=== PATIENT | female | born 1955 | race Caucasian/White ===

== ENCOUNTER 2020-10-04 15:36 | Emergency (ER) | payer MEDICARE, OTHER ==
[~2020-10-04] VITALS: Ht 167.6 cm; Wt 65.3 kg
--- NOTE | 2020-10-04 15:55 | NUR ---
AMBULATED TO ER BED 7 WITHOUT DIFFICULTY/DIZZINESS, MONITORED,EKG ORDERED, DR QUARLES INFORMED
--- NOTE | 2020-10-04 16:05 | NUR ---
SEEN BY DR QUARLES,ORDERS GIVEN AND CARRIED OUT
[2020-10-04 16:13] LABS: BASOPHILS % (AUTO) 0.3 % (0.0-2.0); EOSINOPHILS % (AUTO) 1.8 % (0.0-6.0); HEMATOCRIT 41 % (33-45); HEMOGLOBIN 13.7 g/dL (11.5-14.8); LYMPHOCYTES # (AUTO) 1.8 K/uL (0.8-4.8); LYMPHOCYTES % (AUTO) 24.2 % (20.0-44.0); MEAN CORPUSCULAR HGB CONC 33 g/dl (31.0-36.0); MEAN CORPUSCULAR VOLUME 93 fL (82-100); MONOCYTES # (AUTO) 0.3 K/uL (0.1-1.30); MONOCYTES % (AUTO) 4.4 % (2.0-12.0); NEUTROPHILS # (AUTO) 5.3 K/uL (1.8-8.9); NEUTROPHILS % (AUTO) 69.3 % (43.0-81.0); PLATELET COUNT (AUTO) 299 K/uL (150-450); RED BLOOD CELL COUNT(AUTO) 4.42 MIL/uL (4.0-5.2); WHITE BLOOD COUNT (AUTO) 7.6 K/uL (4.3-11.0)
[2020-10-04] MEDS ORDERED: IOHEXOL-350 100 ML VIAL IV ONE (16:27)
[2020-10-04] MEDS ORDERED: CT SWABBABLE VALVE TRANS SET 1 EA INFUS.SET MC ONE (16:27)
[2020-10-04] MEDS ORDERED: IV NS 0.9% 250 ML IV ONE (16:27)
[2020-10-04 16:28] LABS: CALCIUM, SERUM 9.2 mg/dL (8.5-10.1); CARBON DIOXIDE 24 mmol/L (21-32); CHLORIDE 105 mmol/L (98-107); CREATININE 0.6 mg/dL (0.6-1.3); GLUCOSE 109 mg/dL (74-106); POTASSIUM 3.5 mmol/L (3.5-5.1); SODIUM SERUM 142 mmol/L (136-145); UREA NITROGEN, BLOOD 13 mg/dL (7-18)
--- NOTE | 2020-10-04 16:29 | NUR ---
Updated with plan of care. Pt reclining in bed NO obvious distress
[2020-10-04 16:51] LABS: CHOLESTEROL 187 mg/dL (<200); HDL CHOLESTEROL 58 mg/dL (40-60); LDL 98 mg/dL (0-99); TRIGLYCERIDES 173 mg/dL (30-150)
[2020-10-04 18:20] VITALS: BP 137/70
--- NOTE | 2020-10-04 18:20 | NUR ---
Patient discharged to home in stable condition. Written and verbal after care instructions given. Patient verbalizes understanding of instruction.
== END 2020-10-04 18:20 | disposition home or self-care (01) ==
LOC: ER 15:36
DX: R20.2 Paresthesia of skin (principal); G43.909 Migraine, unspecified, not intractable, without status migrainosus; Z86.73 Personal history of transient ischemic attack (TIA), and cerebral infarction without residual deficits; Z98.890 Other specified postprocedural states; Z88.5 Allergy status to narcotic agent; Z91.018 Allergy to other foods; Z91.048 Other nonmedicinal substance allergy status; Z60.2 Problems related to living alone
CPT/HCPCS: 36415; 70496; 71045; 80048; 80061; 82962; 84484; 85025; 85730; 93005 ×2; 99285; J7050; Q9967

== ENCOUNTER 2022-01-01 13:44 | Emergency (ER) | payer MEDICARE, OTHER ==
[~2022-01-01] VITALS: Ht 162.6 cm; Wt 54.4 kg
[2022-01-01] MEDS ORDERED: HYDROCODONE/APAP 5/325MG TABLET PO ONE (15:30)
[2022-01-01] MEDS ORDERED: HYDROCODONE/APAP 5/325MG TABLET ONE (15:30)
[2022-01-01] MEDS ORDERED: HYDR-4303 PO (15:46)
[2022-01-01 15:53] VITALS: BP 124/71
--- NOTE | 2022-01-01 15:53 | NUR ---
Patient discharged to home in stable condition. Written and verbal after care instructions given. Patient verbalizes understanding of instruction.
== END 2022-01-01 15:53 | disposition home or self-care (01) ==
LOC: ER 13:56
DX: S20.212A Contusion of left front wall of thorax, initial encounter (principal); G43.909 Migraine, unspecified, not intractable, without status migrainosus; Z90.710 Acquired absence of both cervix and uterus; Z88.8 Allergy status to other drugs, medicaments and biological substances; Z60.2 Problems related to living alone; W01.198A Fall on same level from slipping, tripping and stumbling with subsequent striking against other object, initial encounter; Y93.89 Activity, other specified; Y92.89 Other specified places as the place of occurrence of the external cause; Y99.8 Other external cause status
CPT/HCPCS: 71100-TC

== ENCOUNTER 2023-12-09 18:13 | Inpatient (IN) | payer MEDICARE, OTHER ==
[~2023-12-09] VITALS: Ht 162.6 cm; Wt 57.2 kg
[~2023-12-09 18:13] MED LIST: HYDR-4303 PO
[2023-12-09] MEDS ORDERED: EYEL1KIT EACHEYE (19:20)
[2023-12-09] MEDS ORDERED: ASPI-1169 PO (19:20)
[2023-12-09] MEDS ORDERED: VITS42.53 TP (19:20)
[2023-12-09] MEDS ORDERED: ERGO500093 PO (19:20)
[2023-12-09] MEDS ORDERED: AMIN30LI66 PO (19:20)
[2023-12-09] MEDS ORDERED: ZOLP5TAB8 PO (19:20)
[2023-12-09] MEDS ORDERED: CARB15DR EACHEYE (19:20)
[2023-12-09] MEDS ORDERED: CYCL30DR EACHEYE (19:20)
[2023-12-09] MEDS ORDERED: DIVA125T2 PO (19:20)
[2023-12-09] MEDS ORDERED: MEGE400O5 PO (19:20)
[2023-12-09] MEDS ORDERED: LEVO75TA99 PO (19:20)
[2023-12-09] MEDS ORDERED: ZINC220C6 PO (19:20)
[2023-12-09] MEDS ORDERED: ASCO-352 PO (19:20)
[2023-12-09] MEDS ORDERED: ACET325T53 PO (19:20)
[2023-12-09] MEDS ORDERED: MULT-213 PO (19:20)
[2023-12-09] MEDS ORDERED: PANT40TA49 PO (19:20)
[2023-12-09] MEDS ORDERED: ZINC57OI4 TP (19:20)
[2023-12-09] MEDS ORDERED: HONE44PA TP (19:20)
[2023-12-09] MEDS ORDERED: POTA20TA83 PO (19:20)
[2023-12-09] MEDS ORDERED: ATOR40TA PO (19:20)
[2023-12-09] MEDS ORDERED: POVI1MED TP (19:20)
[2023-12-09] MEDS ORDERED: POLY17PO4 PO (19:20)
[2023-12-09] MEDS ORDERED: DULO30CA52 PO (19:20)
[2023-12-09] MEDS ORDERED: ACET-73 PO (19:20)
[2023-12-09] MEDS: IV NS 0.9% 1,000 ML BAG IV ONE (19:29)
[2023-12-09] MEDS: ACETAMINOPHEN 325 MG TABLET PO ONE (19:30)
[2023-12-09] MEDS ORDERED: ACETAMINOPHEN 650 MG/SUPP.RECT RC ONE (19:55)
[2023-12-09] MEDS ORDERED: VANCOMYCIN 1 GM /D5W 250 ML PB IV ONE (20:03)
[2023-12-09] MEDS ORDERED: CEFEPIME 1 GM VIAL ONE (20:03)
[2023-12-09 20:13] LABS: BASOPHILS % (AUTO) 0.1 % (0.0-2.0); HEMATOCRIT 37 % (33-45); HEMOGLOBIN 11.8 g/dL (11.5-14.8); LYMPHOCYTES # (AUTO) 0.4 K/uL (0.8-4.8); LYMPHOCYTES % (AUTO) 2.2 % (20.0-44.0); MEAN CORPUSCULAR HEMOGLOBIN 29 PG (26.0-33.0); MEAN CORPUSCULAR HGB CONC 32 g/dl (31.0-36.0); MEAN CORPUSCULAR VOLUME 91 fL (82-100); MONOCYTES # (AUTO) 2.2 K/uL (0.1-1.30); MONOCYTES % (AUTO) 11.7 % (2.0-12.0); NEUTROPHILS # (AUTO) 15.8 K/uL (1.8-8.9); PLATELET COUNT (AUTO) 195 K/uL (150-450); RED BLOOD CELL COUNT(AUTO) 4.01 MIL/uL (4.0-5.2); RED CELL DISTRIBUTION WIDTH 14.4 % (11.5-15.0); WHITE BLOOD COUNT (AUTO) 18.4 K/uL (4.3-11.0)
[2023-12-09 20:28] LABS: INR 1.13 (0.91-1.10); PARTIAL THROMBOPLASTIN TIME 22.5 SEC (24.3-34.3); PROTHROMBIN TIME 11.9 SECS (9.2-11.1)
[2023-12-09 20:37] LABS: CALCIUM, SERUM 7.5 mg/dL (8.5-10.1); CARBON DIOXIDE 20 mmol/L (21-32); CHLORIDE 101 mmol/L (98-107); CREATININE 0.4 mg/dL (0.6-1.3); GLUCOSE 146 mg/dL (74-106); POTASSIUM 5.7 mmol/L (3.5-5.1); SODIUM SERUM 129 mmol/L (136-145); UREA NITROGEN, BLOOD 48 mg/dL (7-18)
[2023-12-09 20:41] LABS: APPEARANCE,URINE Turbid (CLEAR); BILIRUBIN,URINE MODERATE (NEGATIVE); BLOOD, URINE Negative Ery/uL (NEGATIVE); COLOR,URINE DARK YELLOW (YELLOW); KETONES,URINE Trace mg/dL (NEGATIVE); LEUKOCYTE ESTERASE ,URINE Small (NEGATIVE); NITRITE, URINE Negative (NEGATIVE); PROTEIN,URINE Trace mg/dl (NEGATIVE); UGLUCOSE Negative (NEGATIVE)
[2023-12-09] MEDS: CEFEPIME 2 GM in IV D5W 50 ML IV ONE (20:43)
[2023-12-09 20:46] LABS: LACTIC ACID 2.2 mmol/L (0.4-2.0)
[2023-12-09 20:50] LABS: ALANINE AMINOTRANSFERASE 16 U/L (12-78); ALBUMIN 1.6 g/dL (3.4-5.0); ALKALINE PHOSPHATASE 75 U/L (46-116); ASPARTATE AMINOTRANSFERASE 14 U/L (15-37); BILIRUBIN,DIRECT 0.2 mg/dL (0.0-0.2); BILIRUBIN,TOTAL 0.5 mg/dL (0.2-1.0); NT-PRO BNP 295 pg/mL (0-125)
[2023-12-09 20:54] LABS: ADD URINE CULTURE YES; BACTERIA,URINE 1+ /HPF (None Seen); SQUAMOUS EPITHELIAL CELL,UR 0-2 /HPF (None Seen); URINE AMORPHOUS URATE Moderate /HPF (None Seen)
[2023-12-09] MEDS: ACETAMINOPHEN 650 MG/SUPP.RECT RC ONE (21:00)
[2023-12-09] MEDS: VANCOMYCIN 1 GM in IV D5W 250 ML IV ONE (21:22)
[2023-12-09] MEDS: ENOXAPARIN SODIUM 30 MG/0.3 ML DISP.SYRIN SQ SCH (22:00)
[2023-12-09] MEDS ORDERED: ALBUTEROL FS 2.5 MG/3 ML VIAL.NEB NEB PRN (22:00)
[2023-12-09] MEDS ORDERED: ONDANSETRON HCL/PF 4 MG/2 ML VIAL IVP PRN (22:00)
[2023-12-10] VITALS (9 sets, daily range): BP systolic 115–142; BP diastolic 62–84; TEMP 97.3–98.7; O2SAT 90–98
[2023-12-10] MEDS ORDERED: Calcium Gluconate 0.465 MEQ/ML VIAL IV ONE ×2 (00:30→02:05)
[2023-12-10] MEDS ORDERED: DEXTROSE 50%-WATER 50 ML DISP.SYRIN ONE (02:30)
[2023-12-10] MEDS: Calcium Gluconate 1GM/10ML 4.65 MEQ in IV NS 0.9% 100 ML IV ONE (02:38)
[2023-12-10] MEDS: INSULIN REGULAR, HUMAN 100 UNIT/ML 10 ML VIAL IV ONE (03:02)
[2023-12-10] MEDS: DEXTROSE 50%-WATER 50 ML DISP.SYRIN IVP ONE (03:36)
[2023-12-10] MEDS: ACETAMINOPHEN 650 MG/SUPP.RECT RC PRN (04:55)
[2023-12-10] MEDS: IV NS 0.9% 1,000 ML IV PRN (05:49)
[2023-12-10 06:53] LABS: BASOPHILS % (AUTO) 0.1 % (0.0-2.0); HEMATOCRIT 37 % (33-45); HEMOGLOBIN 12.2 g/dL (11.5-14.8); LYMPHOCYTES # (AUTO) 0.3 K/uL (0.8-4.8); LYMPHOCYTES % (AUTO) 2.1 % (20.0-44.0); MEAN CORPUSCULAR HEMOGLOBIN 29 PG (26.0-33.0); MEAN CORPUSCULAR HGB CONC 33 g/dl (31.0-36.0); MEAN CORPUSCULAR VOLUME 90 fL (82-100); MONOCYTES # (AUTO) 1.2 K/uL (0.1-1.30); MONOCYTES % (AUTO) 8.2 % (2.0-12.0); NEUTROPHILS # (AUTO) 13.1 K/uL (1.8-8.9); NEUTROPHILS % (AUTO) 89.6 % (43.0-81.0); PLATELET COUNT (AUTO) 285 K/uL (150-450); RED BLOOD CELL COUNT(AUTO) 4.17 MIL/uL (4.0-5.2); RED CELL DISTRIBUTION WIDTH 14.6 % (11.5-15.0); WHITE BLOOD COUNT (AUTO) 14.6 K/uL (4.3-11.0)
[2023-12-10 07:19] LABS: ALBUMIN 1.6 g/dL (3.4-5.0); BILIRUBIN,DIRECT 0.2 mg/dL (0.0-0.2); BILIRUBIN,TOTAL 0.5 mg/dL (0.2-1.0); CALCIUM, SERUM 7.7 mg/dL (8.5-10.1); CREATININE 0.4 mg/dL (0.6-1.3); MAGNESIUM 2.6 mg/dL (1.8-2.4); PHOSPHORUS 2.6 mg/dL (2.5-4.9); POTASSIUM 4.9 mmol/L (3.5-5.1); TOTAL PROTEIN, SERUM 5.1 g/dL (6.4-8.2)
[2023-12-10] MEDS ORDERED: Z GUARD REMEDY 4 OZ OINT TP PRN (07:30)
[2023-12-10 07:56] LABS: LACTIC ACID 2.3 mmol/L (0.4-2.0)
[2023-12-10] MEDS: CEFEPIME 2 GM in IV D5W 100 ML IV SCH (08:11)
[2023-12-10 08:23] LABS: THYROID STIMULATING HORMONE 3.67 uIU/mL (0.358-3.74)
[2023-12-10] MEDS: IPRATROPIUM NEB FS 0.5 MG/2.5 ML AMPUL.NEB NEB SCH (09:30)
[2023-12-10] MEDS: ALBUTEROL HALF STRENGTH 1.25 MG/3 ML VIAL.NEB NEB SCH (09:30)
[2023-12-10] MEDS: PANTOPRAZOLE 40 MG VIAL IV SCH (10:44)
[2023-12-10] MEDS: VANCOMYCIN 750 MG in IV D5W 250 ML IV SCH (10:44)
[2023-12-10] MEDS: LEVOFLOXACIN 750 MG /D5W 150ML 150 ML IV SCH (10:45)
[2023-12-10] MEDS: Z GUARD REMEDY 4 OZ OINT TP SCH (10:45)
[2023-12-10] MEDS: ENOXAPARIN SODIUM 40 MG/0.4 ML DISP.SYRIN SQ SCH (10:46)
[2023-12-10] MEDS: DIVALPROEX SODIUM 125 MG TABLET.DR PO SCH (12:34)
[2023-12-10] MEDS: POLYVINYL ALCOHOL 15 ML BOTTLE EACHEYE SCH (12:35)
[2023-12-10] MEDS: MEGESTROL ACETATE SUSP 400 MG/10 ML UDC PO SCH (16:10)
[2023-12-10] MEDS ORDERED: Medication Not On Formulary EA (Cyclosporine (Restasis) 1 DROP) EACHEYE SCH (17:00)
[2023-12-10] MEDS: ATORVASTATIN 40 MG TABLET PO SCH (22:21)
[2023-12-11] VITALS (14 sets, daily range): BP systolic 110–132; BP diastolic 48–62; TEMP 97.3–98.8; O2SAT 96–99
[2023-12-11] MEDS ORDERED: PANTOPRAZOLE 40 MG TABLET.DR PO SCH (07:30)
[2023-12-11] MEDS: LEVOTHYROXINE SODIUM 75 MCG TABLET PO SCH (08:14)
[2023-12-11] MEDS: ZINC SULFATE 220 MG CAPSULE PO SCH (08:14)
[2023-12-11] MEDS: DULOXETINE HCL 30 MG CAPSULE.DR PO SCH (08:14)
[2023-12-11] MEDS: MULTIVIT W/MINERALS 1 TAB TABLET PO SCH (08:14)
[2023-12-11] MEDS: ASPIRIN 81 MG TAB.CHEW PO SCH (08:14)
[2023-12-11] MEDS: ZINC OXIDE 56.7 GM TUBE TP SCH (08:16)
[2023-12-11] MEDS: THERAHONEY GEL 1.5 OZ TUBE TP SCH (08:16)
[2023-12-11] MEDS ORDERED: POVIDONE IODINE TP SCH (09:00)
[2023-12-11] MEDS ORDERED: POTASSIUM CHLORIDE 20 MEQ TAB.PRT.SR PO SCH (09:00)
[2023-12-11] MEDS ORDERED: [UNRECOGNIZED DRUG - OTHER] EACHEYE SCH (09:00)
[2023-12-11] MEDS: PANTOPRAZOLE 40 MG TABLET.DR PO SCH (09:40)
[2023-12-11 12:54] LABS: CALCIUM, SERUM 7.5 mg/dL (8.5-10.1); CREATININE 0.2 mg/dL (0.6-1.3); POTASSIUM 3.8 mmol/L (3.5-5.1)
[2023-12-11 13:01] LABS: BILIRUBIN,TOTAL 0.3 mg/dL (0.2-1.0); TOTAL PROTEIN, SERUM 4.5 g/dL (6.4-8.2)
[2023-12-11 13:07] LABS: ALBUMIN 1.2 g/dL (3.4-5.0)
[2023-12-11 13:20] LABS: HEMATOCRIT 27 % (33-45); HEMOGLOBIN 9.2 g/dL (11.5-14.8); LYMPHOCYTES # (AUTO) 0.5 K/uL (0.8-4.8); MEAN CORPUSCULAR HEMOGLOBIN 30 PG (26.0-33.0); MEAN CORPUSCULAR HGB CONC 34 g/dl (31.0-36.0); MEAN CORPUSCULAR VOLUME 89 fL (82-100); MONOCYTES # (AUTO) 0.6 K/uL (0.1-1.30); MONOCYTES % (AUTO) 5.1 % (2.0-12.0); NEUTROPHILS # (AUTO) 11.4 K/uL (1.8-8.9); NEUTROPHILS % (AUTO) 90.9 % (43.0-81.0); PLATELET COUNT (AUTO) 182 K/uL (150-450); RED BLOOD CELL COUNT(AUTO) 3.05 MIL/uL (4.0-5.2); RED CELL DISTRIBUTION WIDTH 14.4 % (11.5-15.0); WHITE BLOOD COUNT (AUTO) 12.6 K/uL (4.3-11.0)
[2023-12-11] MEDS: TRAZODONE 50 MG TABLET PO SCH (21:11)
[2023-12-11] MEDS ORDERED: TRAZODONE 50 MG TABLET PO SCH (22:00)
[2023-12-12] VITALS (12 sets, daily range): BP systolic 112–140; BP diastolic 69–85; TEMP 97.9–98.9; O2SAT 95–99
[2023-12-12 15:17] LABS: BASOPHILS % (AUTO) 0.1 % (0.0-2.0); HEMATOCRIT 28 % (33-45); HEMOGLOBIN 9.4 g/dL (11.5-14.8); LYMPHOCYTES # (AUTO) 0.3 K/uL (0.8-4.8); LYMPHOCYTES % (AUTO) 2.9 % (20.0-44.0); MEAN CORPUSCULAR HEMOGLOBIN 30 PG (26.0-33.0); MEAN CORPUSCULAR HGB CONC 34 g/dl (31.0-36.0); MEAN CORPUSCULAR VOLUME 89 fL (82-100); MONOCYTES # (AUTO) 0.9 K/uL (0.1-1.30); MONOCYTES % (AUTO) 9.2 % (2.0-12.0); NEUTROPHILS # (AUTO) 8.4 K/uL (1.8-8.9); NEUTROPHILS % (AUTO) 87.8 % (43.0-81.0); PLATELET COUNT (AUTO) 212 K/uL (150-450); RED BLOOD CELL COUNT(AUTO) 3.14 MIL/uL (4.0-5.2); RED CELL DISTRIBUTION WIDTH 14.5 % (11.5-15.0); WHITE BLOOD COUNT (AUTO) 9.6 K/uL (4.3-11.0)
[2023-12-12 15:27] LABS: CALCIUM, SERUM 7.5 mg/dL (8.5-10.1); CREATININE 0.4 mg/dL (0.6-1.3); PHOSPHORUS 1.5 mg/dL (2.5-4.9); POTASSIUM 3.6 mmol/L (3.5-5.1)
[2023-12-12 15:38] LABS: URIC ACID 2.6 mg/dL (2.6-7.2)
[2023-12-12 15:41] LABS: THYROID STIMULATING HORMONE 5.56 uIU/mL (0.358-3.74)
[2023-12-12] MEDS: VANCOMYCIN 750 MG in IV D5W 250 ML IV SCH (17:00)
[2023-12-12 21:06] LABS: *MYCOPLASMA PNEUMONIAE IgG 144 U/mL (0-99); *MYCOPLASMA PNEUMONIAE IgM <770 U/mL (0-769)
[2023-12-12] MEDS: TRAZODONE 50 MG TABLET PO SCH (21:33)
[2023-12-13] VITALS (10 sets, daily range): BP systolic 113–115; BP diastolic 64–65; TEMP 98.1–98.2; O2SAT 94–99
[2023-12-13 06:36] LABS: BASOPHILS % (AUTO) 0.1 % (0.0-2.0); EOSINOPHILS % (AUTO) 0.1 % (0.0-6.0); HEMATOCRIT 30 % (33-45); HEMOGLOBIN 9.8 g/dL (11.5-14.8); LYMPHOCYTES # (AUTO) 0.5 K/uL (0.8-4.8); LYMPHOCYTES % (AUTO) 4.9 % (20.0-44.0); MEAN CORPUSCULAR HEMOGLOBIN 31 PG (26.0-33.0); MEAN CORPUSCULAR HGB CONC 32 g/dl (31.0-36.0); MEAN CORPUSCULAR VOLUME 95 fL (82-100); MONOCYTES # (AUTO) 1.3 K/uL (0.1-1.30); MONOCYTES % (AUTO) 13.3 % (2.0-12.0); NEUTROPHILS # (AUTO) 8.3 K/uL (1.8-8.9); NEUTROPHILS % (AUTO) 81.6 % (43.0-81.0); PLATELET COUNT (AUTO) 193 K/uL (150-450); RED BLOOD CELL COUNT(AUTO) 3.18 MIL/uL (4.0-5.2); WHITE BLOOD COUNT (AUTO) 10.1 K/uL (4.3-11.0)
[2023-12-13 06:53] LABS: CALCIUM, SERUM 7.4 mg/dL (8.5-10.1); CREATININE 0.5 mg/dL (0.6-1.3); MAGNESIUM 2.1 mg/dL (1.8-2.4); PHOSPHORUS 2.1 mg/dL (2.5-4.9); POTASSIUM 3.8 mmol/L (3.5-5.1)
[2023-12-13] MEDS: ONDANSETRON HCL 4 MG/5 ML SOLUTION PO PRN (10:25)
[2023-12-13] MEDS: K PHOS NEUTRAL 250 MG TABLET PO ONE (15:22)
[2023-12-13] MEDS: ONDANSETRON HCL/PF 4 MG/2 ML VIAL IV PRN (16:50)
[2023-12-13 22:06] LABS: LEGIONELLA PNEUMOPHILIA AB Non Reactive (Non Reactive)
[2023-12-13] MEDS: Z GUARD REMEDY 4 OZ OINT TP PRN (22:06)
[2023-12-14 01:52] VITALS: O2SAT 96
[2023-12-14 02:07] VITALS: O2SAT 97; O2SAT 98
[2023-12-14 07:41] VITALS: O2SAT 98
[2023-12-14 07:54] LABS: BASOPHILS % (AUTO) 0.2 % (0.0-2.0); EOSINOPHILS % (AUTO) 0.3 % (0.0-6.0); HEMATOCRIT 27 % (33-45); LYMPHOCYTES # (AUTO) 0.7 K/uL (0.8-4.8); LYMPHOCYTES % (AUTO) 7.3 % (20.0-44.0); MEAN CORPUSCULAR HEMOGLOBIN 30 PG (26.0-33.0); MEAN CORPUSCULAR HGB CONC 33 g/dl (31.0-36.0); MEAN CORPUSCULAR VOLUME 90 fL (82-100); MONOCYTES # (AUTO) 1.2 K/uL (0.1-1.30); MONOCYTES % (AUTO) 13.5 % (2.0-12.0); NEUTROPHILS # (AUTO) 7.3 K/uL (1.8-8.9); NEUTROPHILS % (AUTO) 78.7 % (43.0-81.0); PLATELET COUNT (AUTO) 118 K/uL (150-450); RED CELL DISTRIBUTION WIDTH 14.9 % (11.5-15.0); WHITE BLOOD COUNT (AUTO) 9.2 K/uL (4.3-11.0)
[2023-12-14 07:57] VITALS: O2SAT 99
[2023-12-14] MEDS ORDERED: CEFT1VIA15 IV (09:03)
[2023-12-14 09:55] LABS: CALCIUM, SERUM 7.8 mg/dL (8.5-10.1); CREATININE 0.4 mg/dL (0.6-1.3); POTASSIUM 3.2 mmol/L (3.5-5.1)
[2023-12-14 10:51] LABS: THYROID STIMULATING HORMONE 3.77 uIU/mL (0.358-3.74)
[2023-12-14] MEDS ORDERED: VANCOMYCIN 750 MG in IV D5W 250 ML IV SCH (11:00)
[2023-12-14] MEDS: VANCOMYCIN 500 MG in IV D5W 100ml IV SCH (11:32)
== END 2023-12-14 14:04 | DRG 871 ==
LOC: ER 18:25 → TELE1 19:55 → TELE-TD 12-10 00:18 → MEDSG1 12-10 09:46
PROVIDERS: ADMIT Nurse Practitioner Family; ATTEND Internal Medicine
DX: A41.9 Sepsis, unspecified organism (principal); E43 Unspecified severe protein-calorie malnutrition; J15.9 Unspecified bacterial pneumonia; G93.41 Metabolic encephalopathy; J96.01 Acute respiratory failure with hypoxia; E87.1 Hypo-osmolality and hyponatremia; N39.0 Urinary tract infection, site not specified; E87.20 Acidosis, unspecified; N17.9 Acute kidney failure, unspecified; E03.9 Hypothyroidism, unspecified; E78.5 Hyperlipidemia, unspecified; E86.0 Dehydration; E86.1 Hypovolemia; E87.5 Hyperkalemia; E88.09 Other disorders of plasma-protein metabolism, not elsewhere classified; G35 Multiple sclerosis; K21.9 Gastro-esophageal reflux disease without esophagitis; Z86.73 Personal history of transient ischemic attack (TIA), and cerebral infarction without residual deficits; Z90.710 Acquired absence of both cervix and uterus; R65.20 Severe sepsis without septic shock; R73.9 Hyperglycemia, unspecified; Z68.21 Body mass index [BMI] 21.0-21.9, adult; Z20.822 Contact with and (suspected) exposure to COVID-19; B96.20 Unspecified Escherichia coli [E. coli] as the cause of diseases classified elsewhere; L89.159 Pressure ulcer of sacral region, unspecified stage
CPT/HCPCS: 36415; 36600; 71045-TC; 71250-TC; 80048-TC; 80053-TC; 80076-TC; 80202-TC; 81001; 82533; 82803-TC; 82962-TC; 83605-TC; 83735-TC; 83880; 83935-TC; 84100-TC; 84132-TC; 84300-TC; 84439-TC; 84443-TC; 84481; 84484-TC; 84550-TC; 85025-TC; 85730-TC; 86713; 86738; 87040-TC; 87081-TC; 87086-TC; 87186-TC; 92526; 92611-TC; 94760-TC; 94799-TC; A4223; G0378; J0610; J0692; J1650; J1815; J1956; J2405; J2470; J3370; J3371; J7030; J7040; J7060; Q0162